=== PATIENT | male | born 1960 | race Caucasian/White ===

== ENCOUNTER 2017-03-17 12:45 | Emergency (ER) | payer MEDICARE, MEDICAID ==
[2017-03-17] MEDS ORDERED: Sodium Chloride 0.9% 1,000 ML IV ONE (12:50)
[2017-03-17 13:13] VITALS: BP 73/50
--- NOTE | 2017-03-17 14:00 | CT ---
INDICATION: Syncope, passed out today, mentally challenged. CT HEAD WITHOUT CONTRAST: Serial contiguous 2.5 and 5 mm images were obtained through the brain 03/17/2017 and compared with 07/04/2015. A second set of images was obtained due to motion. Total exam DLP = 1,898.72 mGy-cm. The paranasal sinuses and mastoid air cells appear to be fairly well-aerated. No definite cranial abnormality was identified. No shift of midline structures is noted. There appears to be a tiny new area of abnormal decreased density in the inferomedial basal ganglia on the right, likely representing a tiny lacunar infarct. No other definite abnormal areas of density were identified - no bleeding site or hematoma was seen. The ventricles are minimally prominent with question of very slight increase in prominence. Central atrophy of mild degree is suggested. IMPRESSION: 1. No definite acute intracranial abnormality. 2. Probable tiny lacunar infarct right basal ganglia. 3. Suggestion of mild central atrophy. Report was called to Dr. Almendarez at 1332 hours on 03/17/2017. [facility]
--- NOTE | 2017-03-17 14:20 | EDM.PDOC ---
ED HPI GENERAL MEDICAL PROBLEM - General Chief Complaint: Neuro Symptoms/Deficits Stated Complaint: WEAKNESS Time Seen by Provider: 03/17/17 13:00 Source of Information: Reports: Patient, Other (Shelter Caregiver) History Limitations: Reports: Other (Does not talk normally to people he does not know well.) - History of Present Illness Onset: Today Onset Date: 03/17/17 Onset Time: 12:30 Duration: Minutes: (30), Improving Location: Reports: Generalized Quality: Reports: Other (History of hyponatremia and syncope) Severity: Moderate Improves with: Reports: None Worsens with: Reports: None Context: Reports: Other (Occurred while attempting to get out of van at the Shelter. Has had a recent decrease in Divalproex that he takes for Bipolar disorder.) Associated Symptoms: Reports: Weakness, Other (drooled a little.) - Related Data Allergies Allergy/AdvReac Type Severity Reaction Status Date / Time Penicillins Allergy Cannot Verified 05/08/16 08:14 Remember Home Meds: Home Meds Carbidopa/Levodopa [Carbidopa-Levodopa 25-100] 1 tab PO QID 12/05/15 [History] ClonazePAM [KlonoPIN] 1 mg PO 1900 12/05/15 [History] Divalproex Sodium [Depakote Sprinkle] 6 cap PO DAILY 12/05/15 [History] Docusate Sodium 200 mg PO DAILY 12/05/15 [History] Folic Acid 0.5 mg PO DAILY 12/05/15 [History] Levothyroxine 75 mcg PO ACBREAKFAST 12/05/15 [History] QUEtiapine [SEROquel XR] 50 mg BID 12/05/15 [History] Cefdinir 300 mg PO BID 05/07/16 [History] Haloperidol Lactate [Haldol] 5 mg IM ONETIME PRN #4 injection 05/07/16 [Rx] Polyethylene Glycol 3350 [MiraLAX] 17 gm PO DAILY 05/07/16 [History] QUEtiapine [SEROquel] 500 mg PO BEDTIME 05/07/16 [History] Sodium Chloride 1 tab PO DAILY 05/07/16 [History] predniSONE [Prednisone] 5 mg PO DAILY 05/07/16 [History] Past Medical History - Past Health History Medical/Surgical History: Denies Medical/Surgical History HEENT History: Reports: Impaired Vision, Other (See Below) Other HEENT History: sensorineural hearing loss, mild-moderate gingivitis Cardiovascular History: Reports: Hypertension, Other (See Below) Other Cardiovascular History: bradycardia Gastrointestinal History: Reports: Chronic Constipation Genitourinary History: Reports: Urinary Incontinence Neurological History: Reports: Neuropathy, Peripheral, Parkinson's Psychiatric History: Reports: Bipolar, Psychosis Other Psychiatric History: DELIRIUM Endocrine/Metabolic History: Reports: Hypothyroidism, Vitamin D Deficiency Other Endocrine/Metabolic History: hyponatremis Oncologic (Cancer) History: Reports: Other (See Below) Other Oncologic History: skin CA L cheek basal cell CA Dermatologic History: Reports: Cellulitis, Other (See Below) Other Dermatologic History: basal cell CA L cheek - Past Surgical History HEENT Surgical History: Reports: None GI Surgical History: Reports: None Male Surgical History: Reports: None Neurological Surgical History: Reports: None Social & Family History - Family History Family Medical History: Unobtainable - Tobacco Use Smoking Status *Q: Never Smoker Second Hand Smoke Exposure: No - Caffeine Use Caffeine Use: Reports: Soda - Recreational Drug Use Recreational Drug Use: No ED ROS GENERAL - Review of Systems Review Of Systems: Unable To Obtain ED EXAM, NEURO - Physical Exam Exam: See Below Exam Limited By: Other (Will not speak with us but is starting to act normally with his care staff.) General Appearance: Alert, WD/WN, No Apparent Distress Eye Exam: Bilateral Eye: EOMI, Normal Fundi, Normal Inspection, PERRL Ears: Normal External Exam, Normal Canal, Hearing Grossly Normal, Normal TMs Nose: Normal Inspection, Normal Mucosa, No Blood Throat/Mouth: Normal Inspection Head Exam: Atraumatic, Normocephalic Neck: Normal Inspection, Supple, Non-Tender, Full Range of Motion Respiratory/Chest: No Respiratory Distress, Lungs Clear, Normal Breath Sounds, No Accessory Muscle Use, Chest Non-Tender Cardiovascular: Normal Peripheral Pulses, Regular Rate, Rhythm, No Edema, No Gallop, No JVD, No Murmur, No Rub GI/Abdominal: Normal Bowel Sounds, Soft, Non-Tender, No Organomegaly, No Distention, No Abnormal Bruit, No Mass Neurological: Alert, Normal Mood/Affect, Normal Dorsiflexion, CN II-XII Intact, Normal Plantar Flexion, Normal Reflexes Back Exam: Normal Inspection, Full Range of Motion, NT Extremities: Normal Inspection, Normal Range of Motion, Non-Tender, No Pedal Edema, Normal Capillary Refill Psychiatric: Flat Affect Skin Exam: Warm, Dry, Intact, Normal Color, No Rash EKG INTERPRETATION EKG Date: 03/17/17 Rhythm: NSR [place]: Normal P-Wave: Present QRS: Normal ST-T: Normal QT: Normal Comparison: NA - No Prior EKG Course - Vital Signs Text/Narrative:: Patient had a good ED course. His blood pressure was low at first but came back to normal baseline for him with 1 liter of fluid. He was helped up and was able to walk with assistance as he does at his fdc. His head CT and all labs except sodium were normal, the sodium was 127. He will continue on all meds with no changes and will follow up with his PCP and Psychiatrist next week. He will push fluids and sodium intake also with the help of his Shelter Staff. Last Recorded V/S: Last Vital Signs Temp 36.4 C 03/17/17 13:01 Pulse 75 03/17/17 13:01 Resp 10 L 03/17/17 13:01 BP 73/50 L 03/17/17 13:01 Pulse Ox 95 03/17/17 13:01 - Orders/Labs/Meds Orders: Active Orders 24 hr Category Date Time Status EKG 12 Lead [EK] Routine Ther 03/17/17 12:48 Ordered Labs: Laboratory Tests 03/17/17 03/17/17 03/17/17 Range/Units 13:05 13:05 13:05 WBC 4.9 (4.5-12.0) X10-3/uL RBC 3.94 L (4.30-5.75) x10(6)uL Hgb 13.9 (11.5-15.5) g/dL Hct 40.8 (30.0-51.3) % MCV 103.4 H (80-96) fL MCH 35.3 H (27.7-33.6) pg MCHC 34.1 (32.2-35.4) g/dL RDW 13.8 (11.5-15.5) % Plt Count 175 (125-369) X10(3)uL MPV 8.6 (7.4-10.4) fL Neut % (Auto) 49.5 (46-82) % Lymph % (Auto) 36.4 (13-37) % [place] % (Auto) 11.2 (4-12) % Eos % (Auto) 2 (1.0-5.0) % Baso % (Auto) 1 (0-2) % Neut # (Auto) 2.5 (1.6-8.3) # Lymph # (Auto) 1.8 (0.6-5.0) # [place] # (Auto) 0.5 (0.0-1.3) # Eos # (Auto) 0.1 (0.0-0.8) # Baso # (Auto) 0.0 (0.0-0.2) # Sodium 127 L (135-145) mmol/L Potassium 4.5 (3.5-5.3) mmol/L Chloride 92 L D (100-110) mmol/L Carbon Dioxide 26 (23-29) mmol/L BUN 19 (5-20) mg/dL Creatinine 1.0 (0.6-1.3) mg/dL Est Cr Clr Drug Dosing 84.15 mL/min Estimated GFR (MDRD) > 60 (>60) BUN/Creatinine Ratio 19.0 (9-20) Glucose 177 H D (80-116) mg/dL Calcium 9.1 (8.6-10.2) mg/dL Total Bilirubin 0.6 (0.1-1.3) mg/dL AST 23 (5-27) IU/L ALT 5 L (14-26) IU/L Alkaline Phosphatase 45 L (56-112) IU/L Troponin I < 0.01 L (0.02-0.06) NG/ML Total Protein 5.9 L (6.0-8.0) g/dL Albumin 3.4 L (3.5-5.2) g/dL Globulin 2.5 g/dL Albumin/Globulin Ratio 1.4 Meds: Medications Discontinued Medications Generic Name Dose Route Start Last Admin Trade Name Freq PRN Reason Stop Dose Admin Sodium Chloride 1,000 mls @ 999 mls/hr 03/17/17 12:50 03/17/17 13:06 Normal Saline IV 03/17/17 13:50 999 mls/hr .BOLUS ONE Administration Departure - Departure Time of Disposition: 14:27 Disposition: Home, Self-Care 01 Condition: Good Clinical Impression: Syncope due to orthostatic hypotension, Vaso vagal episode - Discharge Information Referrals: Ha Steinberg MD [Primary Care Provider] - - My Orders Last 24 Hours: My Active Orders 03/17/17 12:48 EKG 12 Lead [EK] Routine - Assessment/Plan Last 24 Hours: My Active Orders 03/17/17 12:48 EKG 12 Lead [EK] Routine
== END 2017-03-17 15:00 | disposition home or self-care (01) ==
LOC: FB.ED 12:45
DX: I95.1 Orthostatic hypotension (principal); E03.9 Hypothyroidism, unspecified; Z79.899 Other long term (current) drug therapy; Z88.0 Allergy status to penicillin
CPT/HCPCS: 36415; 70450; 80053; 84484; 85025; 93005; 96360; 99284; 99285; J7040

== ENCOUNTER 2019-04-14 13:35 | Emergency (ER) | payer MEDICARE, MEDICAID ==
[2019-04-14] MEDS ORDERED: diazePAM 5 MG/ML MDV IM ONE ×2 (14:01→14:38)
--- NOTE | 2019-04-14 14:16 | EDM.PDOCBH ---
ED HPI GENERAL MEDICAL PROBLEM - General Chief Complaint: Behavioral/Psych Stated Complaint: NEEDS SOMETHING TO CALM HIM DOWN Time Seen by Provider: 04/14/19 14:05 Source of Information: Reports: Other (Caregiver) History Limitations: Reports: Combative/Threatening - History of Present Illness INITIAL COMMENTS - FREE TEXT/NARRATIVE: Patient is intellectually disabled and resides at a intermediate. He is brought to the ED by caregiver due to agitation. She states he has been yelling constantly since last night, as well as kicking and hitting staff. Per caregiver , this also occurred two days ago, patient's PCP ordered Valium 1mg IM x 2 doses with good results. There are no RNs present at the intermediate over the weekend, so they are unable to give injections there today. Patient had similar symptoms @2 years ago. There have been no fevers, no complaints of pain, and no vomiting or diarrhea. Onset Date: 04/13/19 - Related Data Allergies Allergy/AdvReac Type Severity Reaction Status Date / Time Penicillins Allergy Cannot Verified 04/14/19 13:51 Remember Home Meds: Home Meds Acetylcysteine [X-Fetarp-p-Cysteine] 600 mg PO 1800 04/14/19 [History] Carbidopa/Levodopa [Sinemet 25-100 mg Tablet] 3 tab PO QID 04/14/19 [History] ClonazePAM [KlonoPIN] 0.5 mg PO DAILY PRN 04/14/19 [History] Divalproex Sodium [Depakote] 500 mg PO BID 04/14/19 [History] FLUoxetine HCl [Prozac] 10 mg PO DAILY 04/14/19 [History] Folic Acid 0.5 mg PO DAILY 04/14/19 [History] Glycopyrrolate 2 mg PO DAILY 04/14/19 [History] LORazepam [Ativan] 1 mg PO Q8H PRN #10 tablet 04/14/19 [Rx] Levothyroxine [Synthroid] 88 mcg PO DAILY 04/14/19 [History] QUEtiapine Fumarate [Seroquel Xr] 50 mg PO TID 04/14/19 [History] cloZAPine [Clozaril] 100 mg PO BID 04/14/19 [History] clonazePAM [Klonopin] 1 mg PO DAILY 04/14/19 [History] Past Medical History HEENT History: Reports: Impaired Vision, Other (See Below) Other HEENT History: sensorineural hearing loss, mild-moderate gingivitis Cardiovascular History: Reports: Hypertension, Other (See Below) Other Cardiovascular History: bradycardia Gastrointestinal History: Reports: Chronic Constipation Genitourinary History: Reports: Urinary Incontinence Neurological History: Reports: Neuropathy, Peripheral, Parkinson's Psychiatric History: Reports: Bipolar, Developmental Delay, Psychosis Other Psychiatric History: DELIRIUM Endocrine/Metabolic History: Reports: Hypothyroidism, Vitamin D Deficiency Other Endocrine/Metabolic History: hyponatremis Oncologic (Cancer) History: Reports: Other (See Below) Other Oncologic History: skin CA L cheek basal cell CA Dermatologic History: Reports: Cellulitis, Other (See Below) Other Dermatologic History: basal cell CA L cheek - Past Surgical History HEENT Surgical History: Reports: None GI Surgical History: Reports: None Male Surgical History: Reports: None Neurological Surgical History: Reports: None Social & Family History - Family History Family Medical History: Unobtainable - Tobacco Use Tobacco Use Within Last Twelve Months: No - Caffeine Use Caffeine Use: Reports: Soda - Alcohol Use Alcohol Use History: No ED ROS GENERAL - Review of Systems Review Of Systems: Unable To Obtain Reason Not Obtained: Intellectual Disability ED EXAM, BEHAVIORAL HEALTH - Physical Exam Exam: See Below Exam Limited By: No Limitations General Appearance: Alert, WD/WN, No Apparent Distress Nose: Normal Inspection Throat/Mouth: No Airway Compromise Head: Atraumatic, Normocephalic Respiratory/Chest: No Respiratory Distress, Lungs Clear, Normal Breath Sounds Cardiovascular: Regular Rate, Rhythm, No Murmur GI/Abdominal: Soft, Non-Tender, No Distention Extremities: Normal Inspection, Normal Range of Motion Neurological: Alert, No Motor/Sensory Deficits Psychiatric: Agitated Skin Exam: Warm, Dry, Intact COURSE, BEHAVIORAL HEALTH COMP - Course Vital Signs: Last Vital Signs Temp 36.5 C 04/14/19 13:40 Pulse 103 H 04/14/19 18:00 Resp 19 04/14/19 19:30 BP 129/88 04/14/19 19:30 Pulse Ox 95 04/14/19 18:00 Orders, Labs, Meds: Active Orders 24 hr Category Date Time Status VALPROIC ACID (DEPAKOTE)(R),S Stat Lab 04/14/19 17:15 Received Laboratory Tests 04/14/19 04/14/19 Range/Units 17:15 17:15 WBC 9.5 (4.5-12.0) X10-3/uL RBC 4.61 (4.30-5.75) x10(6)uL Hgb 14.7 (13.5-17.8) g/dL Hct 45.0 (30.0-51.3) % MCV 97.7 H (80-96) fL MCH 31.8 (27.7-33.6) pg MCHC 32.5 (32.2-35.4) g/dL RDW 14.6 (11.5-15.5) % Plt Count 213 (125-369) X10(3)uL MPV 9.8 (7.4-10.4) fL Neut % (Auto) 77.0 (46-82) % Lymph % (Auto) 14.0 (13-37) % [place] % (Auto) 5.8 (4-12) % Eos % (Auto) 3 (1.0-5.0) % Baso % (Auto) 1 (0-2) % Neut # (Auto) 7.3 (1.6-8.3) # Lymph # (Auto) 1.3 (0.6-5.0) # [place] # (Auto) 0.6 (0.0-1.3) # Eos # (Auto) 0.2 (0.0-0.8) # Baso # (Auto) 0.1 (0.0-0.2) # Sodium 141 (135-145) mmol/L Potassium 4.6 (3.5-5.3) mmol/L Chloride 102 (100-110) mmol/L Carbon Dioxide 30 (21-32) mmol/L BUN 20 H (7-18) mg/dL Creatinine 0.8 (0.70-1.30) mg/dL Est Cr Clr Drug Dosing 102.66 mL/min Estimated GFR (MDRD) > 60 (>60) BUN/Creatinine Ratio 25.0 H (9-20) Glucose 85 (80-116) mg/dL Calcium 9.5 (8.6-10.2) mg/dL Total Bilirubin 0.4 (0.1-1.3) mg/dL AST 16 (5-25) IU/L ALT 8 L (12-36) U/L Alkaline Phosphatase 88 (56-112) IU/L Total Protein 7.1 (6.0-8.0) g/dL Albumin 3.8 (3.5-5.2) g/dL Globulin 3.3 g/dL Albumin/Globulin Ratio 1.2 Medications Discontinued Medications Generic Name Dose Route Start Last Admin Trade Name Freq PRN Reason Stop Dose Admin Diazepam 1 mg 04/14/19 14:01 04/14/19 14:08 Valium IM 04/14/19 14:02 1 mg ONETIME ONE Administration Diazepam 1 mg 04/14/19 14:38 04/14/19 14:40 Valium IM 04/14/19 14:39 1 mg ONETIME ONE Administration Lorazepam 1 mg 04/14/19 17:35 04/14/19 17:45 Ativan IM 04/14/19 17:36 1 mg ONETIME ONE Administration Olanzapine 5 mg 04/14/19 15:11 04/14/19 15:16 Zyprexa IM 04/14/19 15:12 5 mg ONETIME ONE Administration Olanzapine 5 mg 04/14/19 15:47 04/14/19 15:51 Zyprexa IM 04/14/19 15:48 5 mg ONETIME ONE Administration Re-Assessment/Re-Exam: 2030: Agitation finally improved after Ativan 1mg IM. There was no significant improvement after Valium 2mg IM and Zyprexa 10mg IM. ED nurse staff community health called several inpatient behavioral health centers for placement, however none accepted due to various reasons. On re-examination, patient is much more calm, and intermediate staff felt comfortable caring for him at the intermediate in this calmer state. Departure - Departure Time of Disposition: 20:42 Disposition: Home, Self-Care 01 Condition: Good Clinical Impression: Agitation - Discharge Information *PRESCRIPTION DRUG MONITORING PROGRAM REVIEWED*: No *COPY OF PRESCRIPTION DRUG MONITORING REPORT IN PATIENT SHANICE: Not Applicable Prescriptions: LORazepam [Ativan] 1 mg PO Q8H PRN #10 tablet PRN Reason: Agitation Referrals: Ha Steinberg MD [Primary Care Provider] - 1 Day Forms: ED Department Discharge Additional Instructions: Fill the Ativan prescription and give as directed. Follow up with his primary physician in 1-2 days. Return to the ER as needed. - My Orders Last 24 Hours: My Active Orders 04/14/19 17:15 VALPROIC ACID (DEPAKOTE)(R),S Stat - Assessment/Plan Last 24 Hours: My Active Orders 04/14/19 17:15 VALPROIC ACID (DEPAKOTE)(R),S Stat
[2019-04-14] MEDS ORDERED: OLANZapine 10 MG Vial IM ONE ×2 (15:11→15:47)
[2019-04-14] MEDS ORDERED: LORazepam 2 MG/ML SDV IM ONE (17:35)
[2019-04-14 19:52] VITALS: PULSE 103
[2019-04-14 19:54] VITALS: BP 129/88
== END 2019-04-14 21:02 | disposition home or self-care (01) ==
LOC: FB.ED 13:35
DX: R45.1 Restlessness and agitation (principal); E03.9 Hypothyroidism, unspecified; G20 Parkinson's disease; I10 Essential (primary) hypertension; Z88.0 Allergy status to penicillin; Z79.01 Long term (current) use of anticoagulants; Z85.828 Personal history of other malignant neoplasm of skin
CPT/HCPCS: 36415; 80053; 80164; 85025; 96372; 99284; J2060; J3360; S0166; 99283; J3490

== ENCOUNTER 2019-07-13 16:13 | Emergency (ER) | payer MEDICARE, MEDICAID ==
[2019-07-13] MEDS ORDERED: OLANZapine 10 MG Vial IM ONE (16:35)
--- NOTE | 2019-07-13 16:45 | EDM.PDOCBH ---
ED HPI GENERAL MEDICAL PROBLEM - General Chief Complaint: Behavioral/Psych Stated Complaint: MENIC EPISODE PER STAFF Time Seen by Provider: 07/13/19 16:25 Source of Information: Reports: Other (detention staff) History Limitations: Reports: Other - History of Present Illness INITIAL COMMENTS - FREE TEXT/NARRATIVE: brought in by EMS staff note patient started to have manic episode since last night was given Ativan 1mg orally at eh time , but has not been able to calm down since then he does not seem to be violent has been more verbally talkative cooperating with staff and here too had similar episode 03/2019 was treated in ED but had to be admitted in [place] one week later Onset: Sudden Onset Date: 07/12/19 - Related Data Allergies Allergy/AdvReac Type Severity Reaction Status Date / Time Penicillins Allergy Cannot Verified 04/14/19 13:51 Remember Home Meds: Home Meds Acetylcysteine [Q-Uevlmc-h-Cysteine] 600 mg PO 1800 04/14/19 [History] Carbidopa/Levodopa [Sinemet 25-100 mg Tablet] 3 tab PO QID 04/14/19 [History] ClonazePAM [KlonoPIN] 0.5 mg PO DAILY PRN 04/14/19 [History] Divalproex Sodium [Depakote] 500 mg PO BID 04/14/19 [History] FLUoxetine HCl [Prozac] 10 mg PO DAILY 04/14/19 [History] Folic Acid 0.5 mg PO DAILY 04/14/19 [History] Glycopyrrolate 2 mg PO DAILY 04/14/19 [History] LORazepam [Ativan] 1 mg PO Q8H PRN #10 tablet 04/14/19 [Rx] Levothyroxine [Synthroid] 88 mcg PO DAILY 04/14/19 [History] QUEtiapine Fumarate [Seroquel Xr] 50 mg PO TID 04/14/19 [History] cloZAPine [Clozaril] 100 mg PO BID 04/14/19 [History] clonazePAM [Klonopin] 1 mg PO DAILY 04/14/19 [History] Doxycycline [Vibramycin] 100 mg PO BID #20 cap 07/13/19 [Rx] Past Medical History - Past Health History Medical/Surgical History: Denies Medical/Surgical History HEENT History: Reports: Impaired Vision, Other (See Below) Other HEENT History: sensorineural hearing loss, mild-moderate gingivitis Cardiovascular History: Reports: Hypertension, Other (See Below) Other Cardiovascular History: bradycardia Gastrointestinal History: Reports: Chronic Constipation Genitourinary History: Reports: Urinary Incontinence Neurological History: Reports: Neuropathy, Peripheral, Parkinson's Psychiatric History: Reports: Bipolar, Developmental Delay, Psychosis Other Psychiatric History: DELIRIUM Endocrine/Metabolic History: Reports: Hypothyroidism, Vitamin D Deficiency Other Endocrine/Metabolic History: hyponatremis Oncologic (Cancer) History: Reports: Other (See Below) Other Oncologic History: skin CA L cheek basal cell CA Dermatologic History: Reports: Cellulitis, Other (See Below) Other Dermatologic History: basal cell CA L cheek - Past Surgical History HEENT Surgical History: Reports: None GI Surgical History: Reports: None Male Surgical History: Reports: None Neurological Surgical History: Reports: None Social & Family History - Family History Family Medical History: Unobtainable - Caffeine Use Caffeine Use: Reports: Soda ED ROS GENERAL - Review of Systems Review Of Systems: Unable To Obtain Reason Not Obtained: pt has manic episode ED EXAM, BEHAVIORAL HEALTH - Physical Exam Exam: See Below Exam Limited By: Uncooperative General Appearance: Alert, No Apparent Distress, Other (verbally active) Eye Exam: Bilateral Eye: EOMI Ears: Normal External Exam Nose: Normal Inspection Throat/Mouth: Normal Inspection Head: Atraumatic, Normocephalic Neck: Supple, Non-Tender, Full Range of Motion Respiratory/Chest: Lungs Clear, Normal Breath Sounds Cardiovascular: Normal Peripheral Pulses, Regular Rate, Rhythm GI/Abdominal: Soft, Non-Tender Extremities: Normal Inspection Neurological: Alert Psychiatric: Alert, Agitated Skin Exam: Warm COURSE, BEHAVIORAL HEALTH COMP - Course Orders, Labs, Meds: Laboratory Tests 07/13/19 07/13/19 07/13/19 Range/Units 17:25 17:25 18:25 WBC 6.1 (4.5-12.0) X10-3/uL RBC 4.53 (4.30-5.75) x10(6)uL Hgb 14.3 (13.5-17.8) g/dL Hct 43.2 (30.0-51.3) % MCV 95.3 (80-96) fL MCH 31.5 (27.7-33.6) pg MCHC 33.1 (32.2-35.4) g/dL RDW 14.9 (11.5-15.5) % Plt Count 175 (125-369) X10(3)uL MPV 8.8 (7.4-10.4) fL Neut % (Auto) 68.9 (46-82) % Lymph % (Auto) 19.7 (13-37) % [place] % (Auto) 7.0 (4-12) % Eos % (Auto) 4 (1.0-5.0) % Baso % (Auto) 1 (0-2) % Neut # (Auto) 4.3 (1.6-8.3) # Lymph # (Auto) 1.2 (0.6-5.0) # [place] # (Auto) 0.4 (0.0-1.3) # Eos # (Auto) 0.2 (0.0-0.8) # Baso # (Auto) 0.0 (0.0-0.2) # Sodium 140 (135-145) mmol/L Potassium 4.4 (3.5-5.3) mmol/L Chloride 102 (100-110) mmol/L Carbon Dioxide 30 (21-32) mmol/L BUN 15 (7-18) mg/dL Creatinine 0.6 L (0.70-1.30) mg/dL Est Cr Clr Drug Dosing TNP Estimated GFR (MDRD) > 60 (>60) BUN/Creatinine Ratio 25.0 H (9-20) Glucose 90 (80-116) mg/dL Calcium 9.1 (8.6-10.2) mg/dL Magnesium 2.0 (1.8-2.5) mg/dL Urine Color Yellow (YELLOW) Urine Appearance Slightly cloudy (CLEAR) Urine pH 6.0 (5.0-6.5) Ur Specific [place] 1.020 (1.010-1.025) Urine Protein Negative (NEGATIVE) mg/dL Urine Glucose (UA) Normal (NORMAL) mg/dL Urine Ketones 15 H (NEGATIVE) mg/dL Urine Occult Blood Moderate H (NEGATIVE) Urine Nitrite Positive H (NEGATIVE) Urine Bilirubin Negative (NEGATIVE) Urine Urobilinogen 1 H (NEGATIVE) mg/dL Ur Leukocyte Esterase Small H (NEGATIVE) Urine RBC 0-5 (0-5) Urine WBC 5-10 H (0-5) Ur Squamous Epith Cells Rare (NS,R,O) Urine Bacteria Many H (NS) Medications Discontinued Medications Generic Name Dose Route Start Last Admin Trade Name Karen PRN Reason Stop Dose Admin Diazepam 10 mg 07/13/19 16:33 07/13/19 16:42 Valium IM 07/13/19 16:34 10 mg ONETIME ONE Administration Doxycycline Hyclate 100 mg 07/13/19 18:55 Vibra-Tabs PO 07/13/19 18:56 ONETIME ONE Olanzapine 10 mg 07/13/19 16:35 07/13/19 16:42 Zyprexa IM 07/13/19 16:36 10 mg ONETIME ONE Administration Re-Assessment/Re-Exam: pt was given dose of IM valium and Onlazepine and tolerated the injections well with no agitation Labs drawn had to get urine via straight cath pt has been very cooperative reviewed labs : normal except elevated bun/crea ratio Medically stable , Ok to return to longterm Departure - Departure Time of Disposition: 19:00 Disposition: Home, Self-Care 01 Clinical Impression: Bipolar affective disorder, currently manic, severe, with psychotic features, UTI (urinary tract infection) - Discharge Information *PRESCRIPTION DRUG MONITORING PROGRAM REVIEWED*: Not Applicable *COPY OF PRESCRIPTION DRUG MONITORING REPORT IN PATIENT SHANICE: Not Applicable Prescriptions: Doxycycline [Vibramycin] 100 mg PO BID #20 cap Instructions: [place] Referrals: Ha Steinberg MD [Primary Care Provider] - Forms: ED Department Discharge Sepsis Event Note - Focused Exam Date Exam was Performed: 07/13/19 Time Exam was Performed: 18:58
[2019-07-13] MEDS ORDERED: Doxycycline 100 MG Tab PO ONE (18:55)
[2019-07-13 20:13] VITALS: BP 115/61; PULSE 80
== END 2019-07-13 19:10 | disposition home or self-care (01) ==
LOC: FB.ED 16:13
DX: F31.9 Bipolar disorder, unspecified (principal); N39.0 Urinary tract infection, site not specified; I10 Essential (primary) hypertension; E03.9 Hypothyroidism, unspecified; Z79.899 Other long term (current) drug therapy; Z88.0 Allergy status to penicillin
CPT/HCPCS: 36415; 80048; 81001; 83735; 85025; 96372; 99284; A9270; J3360; J3490

== ENCOUNTER 2021-06-25 18:55 | Emergency (ER) | payer MEDICARE, MEDICAID ==
[2021-06-25] MEDS ORDERED: LORazepam 2 MG/ML SDV IM ONE (19:20)
[2021-06-25] MEDS ORDERED: OLANZapine 10 MG Vial IM ONE (19:20)
[2021-06-25 19:25] VITALS: BP 123/88
[2021-06-26] MEDS ORDERED: cefTRIAXone 1 GM Vial IM ONE (00:15)
[2021-06-26 01:34] VITALS: PULSE 84
== END 2021-06-26 01:10 ==
LOC: FB.ED 18:55
DX: N39.0 Urinary tract infection, site not specified (principal); R31.9 Hematuria, unspecified; F69 Unspecified disorder of adult personality and behavior; I10 Essential (primary) hypertension; E03.9 Hypothyroidism, unspecified; Z88.0 Allergy status to penicillin; Z79.899 Other long term (current) drug therapy
CPT/HCPCS: 36415; 74176; 80053; 81001; 83735; 85025; 86140; 87086; 87186; 96372; 99285; J0696; J2060; J3490

== ENCOUNTER 2022-09-26 11:38 | Inpatient (IN) | payer MEDICARE, MEDICAID ==
[2022-09-26] MEDS ORDERED: cefTRIAXone 2 GM Vial IVPUSH ONE (12:32)
[2022-09-26] MEDS ORDERED: Enoxaparin 40 MG/0.4 ML Syringe SUBCUT SCH (12:45)
[2022-09-26] MEDS: Doxycycline 100 MG in Sodium Chloride 0.9% 100 ML IV SCH (13:36)
[2022-09-26] MEDS ORDERED: CLOZAPINE 25 MG PO ONE (14:45)
[2022-09-26] MEDS ORDERED: CLOZAPINE 100 MG PO ONE (14:45)
[2022-09-26] MEDS ORDERED: Sodium Chloride 0.9% 10 ML Syringe FLUSH PRN (14:46)
[2022-09-26] MEDS ORDERED: Triamcinolone Acetonide 0.1% Crm 15 GM Tube TOP PRN (15:29)
[2022-09-26] MEDS ORDERED: Bisacodyl 5 MG Tab PO PRN (15:29)
[2022-09-26] MEDS: Glycopyrrolate 1 MG Tab PO SCH ×2 (16:34→21:00)
[2022-09-26] MEDS: Divalproex Sodium Delayed-Release 250 MG Tab.CR PO SCH (16:35)
[2022-09-26] MEDS: Carbidopa/Levodopa 25-100 MG Tab PO SCH ×2 (16:36→20:57)
[2022-09-26] MEDS: ClonazePAM 1 MG Tab PO SCH ×2 (16:54→21:19)
[2022-09-26] MEDS: ClonazePAM 0.5 MG Tab PO SCH ×2 (16:54→21:19)
[2022-09-26] MEDS ORDERED: Divalproex Sodium Delayed-Release 500 MG Tab.CR PO SCH (21:00)
[2022-09-26] MEDS ORDERED: Polyethylene Glycol 3350 Powder 238 GM Bot PO SCH (21:00)
[2022-09-26] MEDS: Polyethylene Glycol 3350 Powder 17 GM Packet PO SCH (21:10)
[2022-09-27] MEDS: Doxycycline 100 MG in Sodium Chloride 0.9% 100 ML IV SCH (01:48)
[2022-09-27] MEDS ORDERED: Levothyroxine 88 MCG Tab PO SCH (06:00)
[2022-09-27 06:36] LABS: BASOPHILS PERCENT AUTO 0.1 % (0.3-3.8); EOSINOPHILS PERCENT AUTO 0.3 % (0.1-6.8); HEMATOCRIT 37.4 % (38.3-50.1); HEMOGLOBIN 12.4 g/dL (12.9-17.7); LYMPHOCYTES ABSOLUTE AUTO 0.6 x10-3/uL (0.5-4.5); LYMPHOCYTES PERCENT AUTO 4.2 % (15.8-45.3); MEAN CORPUSCULAR HEMOGLOBIN 32.2 pg (27.0-33.3); MEAN CORPUSCULAR HGB CONC 33.1 g/dL (28.7-35.3); MEAN CORPUSCULAR VOLUME 97.3 fL (80.8-98.7); MEAN PLATELET VOLUME 9.9 fL (6.7-11.0); MONOCYTES ABSOLUTE AUTO 0.4 x10-3/uL (0.0-1.2); NEUTROPHILS ABSOLUTE AUTO 12.6 x10-3/uL (1.7-6.9); NEUTROPHILS PERCENT AUTO 92.4 % (40.3-71.8); PLATELET COUNT,PLT 168 x10(3)uL (117-477); RED BLOOD CELL COUNT 3.85 x10(6)uL (3.90-5.90); RED CELL DISTRIBUTION WIDTH 15.4 % (12.4-15.0); WHITE BLOOD CELL COUNT,WBC 13.6 x10-3/uL (3.2-10.1)
[2022-09-27 06:39] LABS: BLOOD UREA NITROGEN,BUN 43 mg/dL (7-18); BUN/CREATININE RATIO 25.3 (9-20); CALCIUM 10.2 mg/dL (8.6-10.2); CARBON DIOXIDE,CO2 34 mmol/L (21-32); CHLORIDE,CL 102 mmol/L (100-110); CREATININE 1.7 mg/dL (0.70-1.30); EST CRCL DRUG DOSING (CG) 43.59 mL/min; ESTIMATED GFR 45 mL/min (>60); GLUCOSE RANDOM 79 mg/dL (80-116); POTASSIUM,K 6.1 mmol/L (3.5-5.3); SODIUM,NA 139 mmol/L (135-145)
[2022-09-27] MEDS: Polyethylene Glycol 3350 Powder 17 GM Packet PO SCH (07:52)
[2022-09-27] MEDS: Divalproex Sodium Delayed-Release 250 MG Tab.CR PO SCH (07:52)
[2022-09-27] MEDS: Carbidopa/Levodopa 25-100 MG Tab PO SCH (07:52)
[2022-09-27] MEDS: ClonazePAM 1 MG Tab PO SCH (07:52)
[2022-09-27] MEDS: ClonazePAM 0.5 MG Tab PO SCH (07:52)
[2022-09-27] MEDS: Glycopyrrolate 1 MG Tab PO SCH (07:52)
[2022-09-27] MEDS ORDERED: Sodium Chloride 0.9% 1,000 ML IV ONE ×2 (07:55→08:55)
[2022-09-27] MEDS ORDERED: CLOZAPINE 25 MG PO SCH (08:00)
[2022-09-27 08:32] LABS: HEMATOCRIT 36.8 % (38.3-50.1); HEMOGLOBIN 12.2 g/dL (12.9-17.7); MEAN CORPUSCULAR HGB CONC 33.1 g/dL (28.7-35.3); MEAN CORPUSCULAR VOLUME 96.8 fL (80.8-98.7); MEAN PLATELET VOLUME 10.1 fL (6.7-11.0); PLATELET COUNT,PLT 158 x10(3)uL (117-477); RED CELL DISTRIBUTION WIDTH 15.1 % (12.4-15.0); WHITE BLOOD CELL COUNT,WBC 12.7 x10-3/uL (3.2-10.1)
[2022-09-27 08:38] LABS: A/G RATIO 0.9; ALANINE AMINOTRANSFERASE,ALT 9 U/L (12-36); ALBUMIN 2.8 g/dL (3.2-4.6); ALKALINE PHOSPHATASE 81 IU/L (56-112); ASPARTATE AMNIOTRANSFERASE,AST 21 IU/L (5-25); BILIRUBIN TOTAL 0.3 mg/dL (0.1-1.3); BLOOD UREA NITROGEN,BUN 44 mg/dL (7-18); BUN/CREATININE RATIO 24.4 (9-20); CALCIUM 10.1 mg/dL (8.6-10.2); CARBON DIOXIDE,CO2 33 mmol/L (21-32); CHLORIDE,CL 103 mmol/L (100-110); CREATININE 1.8 mg/dL (0.70-1.30); EST CRCL DRUG DOSING (CG) 41.17 mL/min; ESTIMATED GFR 42 mL/min (>60); GLUCOSE RANDOM 79 mg/dL (80-116); SODIUM,NA 140 mmol/L (135-145)
[2022-09-27 08:40] LABS: POTASSIUM,K 6.2 mmol/L (3.5-5.3)
[2022-09-27 08:46] LABS: ANISOCYTOSIS FEW; BAND PERCENT MAN 7 % (0-6); LYMPHOCYTES PERCENT MAN 2 % (13-37); METAMYELOCYTE PERCENT MAN 1 % (0-0); MONOCYTES PERCENT MAN 3 % (4-12); SEG NEUTROPHILS PERCENT MAN 87 % (46-82)
[2022-09-27 08:47] LABS: TROPONIN I 12.9 pg/mL (4.0-60.3)
[2022-09-27 08:49] LABS: C-REACTIVE PROTEIN 13.8 mg/dL (0.5-0.9)
[2022-09-27 08:54] VITALS: PULSE 91
[2022-09-27] MEDS ORDERED: Folic Acid 1 MG Tab PO SCH (09:00)
[2022-09-27] MEDS ORDERED: Cholecalciferol (Vitamin D3) 25 MCG Tab PO SCH (09:00)
[2022-09-27] MEDS ORDERED: Folic Acid 0.4 MG Tab PO SCH (09:00)
[2022-09-27] MEDS ORDERED: Non-Formulary Medication 1 Each (Cholecalciferol (Vitamin D3) [Vitamin D3] 50 MCG Tablet) PO SCH (09:00)
[2022-09-27 19:31] VITALS: BP 92/50
== END 2022-09-27 09:34 | DRG 871 ==
LOC: FB.MS 11:38
PROVIDERS: ADMIT Student in an Organized Health Care Education/Training Program; ATTEND Student in an Organized Health Care Education/Training Program
DX: A41.9 Sepsis, unspecified organism (principal); J18.9 Pneumonia, unspecified organism; F31.2 Bipolar disorder, current episode manic severe with psychotic features; N30.01 Acute cystitis with hematuria; E66.01 Morbid (severe) obesity due to excess calories; E87.5 Hyperkalemia; D53.9 Nutritional anemia, unspecified; E03.9 Hypothyroidism, unspecified; K59.09 Other constipation; I10 Essential (primary) hypertension; R45.1 Restlessness and agitation; I95.9 Hypotension, unspecified; G20 Parkinson's disease; R62.50 Unspecified lack of expected normal physiological development in childhood; Z68.30 Body mass index [BMI] 30.0-30.9, adult; Z85.828 Personal history of other malignant neoplasm of skin
CPT/HCPCS: 36415; 71045; 80048; 80053; 83605; 83880; 84484; 85025; 86140; 87040; 93005; 93010; 99223; 99239; A9270-GY; J0696; J1650; J3490; J7030

== ENCOUNTER 2022-10-16 10:49 | Emergency (ER) | payer MEDICARE, MEDICAID ==
[2022-10-16] MEDS ORDERED: Sodium Chloride 0.9% 1,000 ML IV SCH (12:45)
[2022-10-16 13:16] LABS: BLOOD UREA NITROGEN,BUN 14 mg/dL (7-18); CALCIUM 9.6 mg/dL (8.6-10.2); CARBON DIOXIDE,CO2 35 mmol/L (21-32); CHLORIDE,CL 99 mmol/L (100-110); CREATININE 0.7 mg/dL (0.70-1.30); ESTIMATED GFR 104 mL/min (>60); GLUCOSE RANDOM 88 mg/dL (80-116); POTASSIUM,K 4.7 mmol/L (3.5-5.3); SODIUM,NA 138 mmol/L (135-145)
[2022-10-16 13:18] LABS: HEMATOCRIT 37.5 % (38.3-50.1); HEMOGLOBIN 12.2 g/dL (12.9-17.7); MEAN CORPUSCULAR HEMOGLOBIN 32.8 pg (27.0-33.3); MEAN CORPUSCULAR HGB CONC 32.7 g/dL (28.7-35.3); MEAN CORPUSCULAR VOLUME 100.5 fL (80.8-98.7); MEAN PLATELET VOLUME 9.3 fL (6.7-11.0); PLATELET COUNT,PLT 331 x10(3)uL (117-477); RED BLOOD CELL COUNT 3.73 x10(6)uL (3.90-5.90); WHITE BLOOD CELL COUNT,WBC 6.7 x10-3/uL (3.2-10.1)
[2022-10-16 13:22] LABS: ALBUMIN 3.1 g/dL (3.2-4.6); ALKALINE PHOSPHATASE 98 IU/L (56-112); ASPARTATE AMNIOTRANSFERASE,AST 12 IU/L (5-25); BILIRUBIN TOTAL 0.2 mg/dL (0.1-1.3); PROTEIN TOTAL,TP 6.2 g/dL (6.0-8.0)
[2022-10-16 13:32] LABS: MAGNESIUM 2.5 mg/dL (1.8-2.5); PHOSPHORUS 4.8 mg/dL (2.6-4.6)
[2022-10-16 13:59] LABS: ALANINE AMINOTRANSFERASE,ALT < 6 U/L (12-36)
[2022-10-16 14:37] LABS: EOSINOPHILS PERCENT MAN 2 % (0-5); LYMPHOCYTES PERCENT MAN 31 % (13-37); MONOCYTES PERCENT MAN 5 % (4-12); SEG NEUTROPHILS PERCENT MAN 62 % (46-82)
[2022-10-16 16:22] VITALS: BP 130/67; PULSE 56
== END 2022-10-16 16:12 | disposition other institution (70) ==
LOC: FB.ED 10:49
DX: I48.91 Unspecified atrial fibrillation (principal); Z88.0 Allergy status to penicillin; Z79.899 Other long term (current) drug therapy
CPT/HCPCS: 71045; 80053; 83605; 83735; 83880; 84100; 84484; 85025; 85379; 86140; 87040; 93005; 96360; 96361; 99284-25; J7030

== ENCOUNTER 2022-11-21 08:14 | Emergency (ER) | payer MEDICARE, MEDICAID ==
[2022-11-21 10:00] LABS: BASOPHILS PERCENT AUTO 0.3 % (0.3-3.8); EOSINOPHILS ABSOLUTE AUTO 0.1 x10-3/uL (0.0-0.6); EOSINOPHILS PERCENT AUTO 0.8 % (0.1-6.8); HEMATOCRIT 37.7 % (38.3-50.1); HEMOGLOBIN 12.6 g/dL (12.9-17.7); LYMPHOCYTES ABSOLUTE AUTO 0.8 x10-3/uL (0.5-4.5); LYMPHOCYTES PERCENT AUTO 9.9 % (15.8-45.3); MEAN CORPUSCULAR HEMOGLOBIN 32.7 pg (27.0-33.3); MEAN CORPUSCULAR HGB CONC 33.5 g/dL (28.7-35.3); MEAN CORPUSCULAR VOLUME 97.6 fL (80.8-98.7); MEAN PLATELET VOLUME 8.5 fL (6.7-11.0); MONOCYTES ABSOLUTE AUTO 0.4 x10-3/uL (0.0-1.2); MONOCYTES PERCENT AUTO 4.6 % (5.5-15.2); NEUTROPHILS ABSOLUTE AUTO 6.5 x10-3/uL (1.7-6.9); NEUTROPHILS PERCENT AUTO 84.4 % (40.3-71.8); PLATELET COUNT,PLT 262 x10(3)uL (117-477); RED BLOOD CELL COUNT 3.86 x10(6)uL (3.90-5.90); RED CELL DISTRIBUTION WIDTH 15.1 % (12.4-15.0); WHITE BLOOD CELL COUNT,WBC 7.6 x10-3/uL (3.2-10.1)
[2022-11-21 10:11] LABS: BLOOD UREA NITROGEN,BUN 16 mg/dL (7-18); CALCIUM 9.9 mg/dL (8.6-10.2); CARBON DIOXIDE,CO2 33 mmol/L (21-32); CHLORIDE,CL 102 mmol/L (100-110); CREATININE 0.8 mg/dL (0.70-1.30); EST CRCL DRUG DOSING (CG) 98.85 mL/min; ESTIMATED GFR 100 mL/min (>60); GLUCOSE RANDOM 76 mg/dL (80-116); POTASSIUM,K 4.9 mmol/L (3.5-5.3); SODIUM,NA 142 mmol/L (135-145)
[2022-11-21 10:17] LABS: A/G RATIO 1.2; ALANINE AMINOTRANSFERASE,ALT 12 U/L (12-36); ALBUMIN 3.7 g/dL (3.2-4.6); ALKALINE PHOSPHATASE 99 IU/L (56-112); ASPARTATE AMNIOTRANSFERASE,AST 16 IU/L (5-25); BILIRUBIN TOTAL 0.2 mg/dL (0.1-1.3); PROTEIN TOTAL,TP 6.8 g/dL (6.0-8.0)
== END 2022-11-21 12:10 | disposition home health service (06) ==
LOC: FB.ED 08:14
DX: R56.9 Unspecified convulsions (principal); F13.239 Sedative, hypnotic or anxiolytic dependence with withdrawal, unspecified; I10 Essential (primary) hypertension; E03.9 Hypothyroidism, unspecified; Z88.0 Allergy status to penicillin; Z79.899 Other long term (current) drug therapy
CPT/HCPCS: 36415; 80053; 82550; 83735; 84100; 85025; 86140; 96372; 99285; J3360

== ENCOUNTER 2024-03-28 14:33 | Emergency (ER) | payer MEDICARE, MEDICAID ==
[2024-03-28 14:57] VITALS: PULSE 88
[2024-03-28 15:52] LABS: INFLUENZA A NAA NEGATIVE (NEGATIVE); INFLUENZA B NAA NEGATIVE (NEGATIVE); RESPIRATORY SYNCYTIAL VIR NAA NEGATIVE (NEGATIVE)
[2024-03-28 16:01] LABS: CORONAVIRUS COVID-19 NAA NEGATIVE (NEGATIVE)
== END 2024-03-28 16:53 | disposition home or self-care (01) ==
LOC: FB.ED 14:33
DX: R05.9 Cough, unspecified (principal); I10 Essential (primary) hypertension; E03.9 Hypothyroidism, unspecified; Z79.890 Hormone replacement therapy; Z79.899 Other long term (current) drug therapy; Z88.0 Allergy status to penicillin
CPT/HCPCS: 0241U; 71046; 99283; 99285

== ENCOUNTER 2025-01-19 10:51 | Emergency (ER) | payer MEDICARE, MEDICAID ==
[2025-01-19 11:16] VITALS: BP 104/55; PULSE 74
[2025-01-19 11:40] LABS: GLUCOSE,URINE NORMAL (NORMAL); OCCULT BLOOD,URINE MODERATE (NEGATIVE)
[2025-01-19 11:41] LABS: APPEARANCE,URINE SLIGHTLY CLOUDY (CLEAR)
[2025-01-19 11:42] LABS: SQUAMOUS EPITHELIAL CELLS,UR FEW (NS,R,O)
== END 2025-01-19 12:02 | disposition home or self-care (01) ==
LOC: FB.ED 10:51
DX: N39.0 Urinary tract infection, site not specified (principal); I10 Essential (primary) hypertension; E03.9 Hypothyroidism, unspecified; Z88.0 Allergy status to penicillin; Z88.8 Allergy status to other drugs, medicaments and biological substances; Z79.890 Hormone replacement therapy; Z79.899 Other long term (current) drug therapy
CPT/HCPCS: 81001; 87086; 87088; 87186; 99283

== ENCOUNTER 2025-01-31 16:28 | Emergency (ER) | payer MEDICARE, MEDICAID ==
[2025-01-31] MEDS: LORazepam 2 MG/ML SDV IM ONE (16:58)
[2025-01-31] MEDS: diphenhydrAMINE 50 MG/ML SDV IM ONE (17:47)
[2025-01-31 17:54] LABS: BASOPHILS ABSOLUTE AUTO 0.0 x10-3/uL (0.0-0.3); BASOPHILS PERCENT AUTO 0.5 % (0.3-3.8); EOSINOPHILS ABSOLUTE AUTO 0.1 x10-3/uL (0.0-0.6); EOSINOPHILS PERCENT AUTO 1.5 % (0.1-6.8); LYMPHOCYTES ABSOLUTE AUTO 1.0 x10-3/uL (0.5-4.5); LYMPHOCYTES PERCENT AUTO 11.9 % (15.8-45.3); MEAN PLATELET VOLUME 8.8 fL (6.7-11.0); MONOCYTES ABSOLUTE AUTO 0.4 x10-3/uL (0.0-1.2); MONOCYTES PERCENT AUTO 4.5 % (5.5-15.2); NEUTROPHILS ABSOLUTE AUTO 7.1 x10-3/uL (1.7-6.9); NEUTROPHILS PERCENT AUTO 81.6 % (40.3-71.8); PLATELET COUNT,PLT 198 x10(3)uL (117-477); RED BLOOD CELL COUNT 4.27 x10(6)uL (3.90-5.90); RED CELL DISTRIBUTION WIDTH 14.1 % (12.4-15.0); WHITE BLOOD CELL COUNT,WBC 8.7 x10-3/uL (3.2-10.1)
[2025-01-31 18:00] LABS: BLOOD UREA NITROGEN,BUN 23 mg/dL (7-18); CARBON DIOXIDE,CO2 29 mmol/L (21-32); CHLORIDE,CL 100 mmol/L (100-110); CREATININE 1.1 mg/dL (0.70-1.30); ESTIMATED GFR 75 mL/min (>60); GLUCOSE RANDOM 82 mg/dL (80-116); POTASSIUM,K 5.0 mmol/L (3.5-5.3); SODIUM,NA 138 mmol/L (135-145)
[2025-01-31 18:06] LABS: A/G RATIO 1.3; ALANINE AMINOTRANSFERASE,ALT 6 U/L (12-36); ASPARTATE AMNIOTRANSFERASE,AST 5 IU/L (5-25); BILIRUBIN TOTAL 0.4 mg/dL (0.1-1.3); PROTEIN TOTAL,TP 7.0 g/dL (6.0-8.0)
[2025-01-31 21:11] LABS: GLUCOSE,URINE NORMAL (NORMAL); OCCULT BLOOD,URINE MODERATE (NEGATIVE)
[2025-01-31 21:18] LABS: APPEARANCE,URINE CLEAR (CLEAR)
[2025-01-31 21:19] LABS: SQUAMOUS EPITHELIAL CELLS,UR OCCASIONAL (NS,R,O)
[2025-01-31 22:22] VITALS: BP 122/68; PULSE 99
== END 2025-01-31 22:05 | disposition home or self-care (01) ==
LOC: FB.ED 16:28
DX: R45.1 Restlessness and agitation (principal); R46.89 Other symptoms and signs involving appearance and behavior; N39.0 Urinary tract infection, site not specified; I48.91 Unspecified atrial fibrillation; I10 Essential (primary) hypertension; E03.9 Hypothyroidism, unspecified; Z91.048 Other nonmedicinal substance allergy status; Z88.0 Allergy status to penicillin
CPT/HCPCS: 36415; 80053; 81001; 85025; 96372; 99284; J0696; J1200; J1630; J2060; J2359